=== PATIENT | male | born 1980 | race Two or more races ===

== ENCOUNTER 2021-07-05 01:33 | Inpatient (IN) ==
[2021-07-05] MEDS ORDERED: METHOCARBAMOL 500 MG TABLET PO STA (03:56)
[2021-07-05] MEDS ORDERED: KETOROLAC 60 MG/2 ML VIAL IM STA (03:56)
[2021-07-05 04:03] LABS: Basophils # 0.4 10*3/uL (0.0-0.2); Basophils % 0.4 % (0.0-0.8); Eosinophils # 0.2 10*3/uL (0.0-0.87); Eosinophils % 0.2 % (0.00-10.9); Hematocrit 36.6 VOL% (42.0-52.0); Hemoglobin 12.1 GM/DL (14.0-18.0); Immature Granulocytes % 1.5 %; Immature Granulocytes Absolute 1.26 #; Lymphocytes # 21.9 10*3/uL (1.4-4.0); Lymphocytes % 26.2 % (21.2-54.2); Mean Corpuscular HGB Conc 33.1 GM/DL (32-36); Mean Platelet Volume 9.8 FL (9.6-12.0); Monocytes % 53.2 % (1.7-12.7); NRBC # 0.26 10*3/uL; Neutrophils % 18.5 % (38.7-73.9); Platelet Count 150 T/CUMM (130-400); Red Blood Count 3.98 MC/CUMM (3.8-5.5); Red Cell Distribution Width 16.6 % (9.3-17.3)
[2021-07-05 04:13] LABS: White Blood Count 83.7 T/CUMM (4-12)
[2021-07-05 04:24] LABS: Alanine Aminotransferase 39 U/L (16-61); Albumin 3.7 G/DL (3.4-5.0); Alkaline Phosphatase 101 U/L (45-117); Aspartate Amino Transferase 20 U/L (0-37); Bilirubin,Total < 0.39 MG/DL (0.20-1.00); Blood Urea Nitrogen 18 MG/DL (7-18); Carbon Dioxide 26 MMOL/L (21-32); Estimated Glom Filtration Rate 112 ML/MIN; Glucose 97 MG/DL (74-106); Potassium 3.6 MMOL/L (3.5-5.1); Sodium 136 MMOL/L (136-145); Total Protein 8.4 G/DL (6.4-8.2)
[2021-07-05] MEDS ORDERED: ZALEPLON 5 MG CAPSULE PO PRN (05:04)
[2021-07-05] MEDS ORDERED: ONDANSETRON 4 MG/2 ML VIAL IV PRN (05:04)
[2021-07-05] MEDS ORDERED: ENOXAPARIN 100 MG/ML SYRINGE SUBCUT STA (05:35)
[2021-07-05 07:39] LABS: Band Neutrophils 1 % (0-10); Lymphocytes 59 % (20-55); Segmented Neutrophils 6 % (50-85); Total Cells Counted 100
[2021-07-05 07:40] LABS: Atypical Lymphocytes Many; Hypochromasia 1+; Microcytosis 1+; Platelet Estimate Normal
[2021-07-05 10:53] LABS: Basophils # 0.2 10*3/uL (0.0-0.2); Basophils % 0.3 % (0.0-0.8); Eosinophils # 0.2 10*3/uL (0.0-0.87); Eosinophils % 0.2 % (0.00-10.9); Hematocrit 36.9 VOL% (42.0-52.0); Hemoglobin 12.1 GM/DL (14.0-18.0); Immature Granulocytes % 1.4 %; Immature Granulocytes Absolute 1.03 #; Lymphocytes # 21.7 10*3/uL (1.4-4.0); Lymphocytes % 28.5 % (21.2-54.2); Mean Corpuscular HGB Conc 32.8 GM/DL (32-36); Mean Corpuscular Volume 92.3 FL (87-102); Mean Platelet Volume 9.7 FL (9.6-12.0); Monocytes % 52.5 % (1.7-12.7); NRBC # 0.22 10*3/uL; Neutrophils % 17.1 % (38.7-73.9); Platelet Count 149 T/CUMM (130-400); Red Cell Distribution Width 16.7 % (9.3-17.3)
[2021-07-05 11:01] LABS: White Blood Count 76.2 T/CUMM (4-12)
[2021-07-05 11:27] LABS: Eosinophils 1 % (0-10); Lymphocytes 86 % (20-55); Nucleated Red Blood Cells 2 (0-5); Segmented Neutrophils 2 % (50-85); Total Cells Counted 100
[2021-07-05 11:28] LABS: Atypical Lymphocytes Many; Hypochromasia 1+; Microcytosis 1+; Platelet Estimate Adequate
[2021-07-05] MEDS: ENOXAPARIN 100 MG/ML SYRINGE SUBCUT SCH (20:47)
[2021-07-05] MEDS: MONTELUKAST 10 MG TABLET PO SCH (22:23)
[2021-07-05] MEDS: KETOROLAC 15 MG/1 ML VIAL IV SCH (22:23)
[2021-07-06] MEDS: KETOROLAC 15 MG/1 ML VIAL IV SCH (05:39)
[2021-07-06 07:55] LABS: Basophils # 0.2 10*3/uL (0.0-0.2); Basophils % 0.2 % (0.0-0.8); Eosinophils # 0.1 10*3/uL (0.0-0.87); Eosinophils % 0.2 % (0.00-10.9); Hematocrit 35.4 VOL% (42.0-52.0); Hemoglobin 11.7 GM/DL (14.0-18.0); Immature Granulocytes % 0.7 %; Immature Granulocytes Absolute 0.44 #; Mean Corpuscular HGB Conc 33.1 GM/DL (32-36); Mean Corpuscular Volume 90.3 FL (87-102); Mean Platelet Volume 9.3 FL (9.6-12.0); Monocytes % 57.4 % (1.7-12.7); NRBC # 0.09 10*3/uL; Neutrophils % 14.5 % (38.7-73.9); Platelet Count 133 T/CUMM (130-400); Red Blood Count 3.92 MC/CUMM (3.8-5.5); Red Cell Distribution Width 16.7 % (9.3-17.3)
[2021-07-06 07:57] LABS: White Blood Count 66.4 T/CUMM (4-12)
[2021-07-06 08:13] LABS: Alanine Aminotransferase 39 U/L (16-61); Albumin 3.3 G/DL (3.4-5.0); Alkaline Phosphatase 100 U/L (45-117); Aspartate Amino Transferase 16 U/L (0-37); Bilirubin,Direct < 0.100 MG/DL (0.0-0.20); Bilirubin,Indirect 0.4 MG/DL (0.0-1.0); Blood Urea Nitrogen 18 MG/DL (7-18); Calcium 8.6 MG/DL (8.5-10.1); Carbon Dioxide 25 MMOL/L (21-32); Estimated Glom Filtration Rate 111 ML/MIN; Glucose 99 MG/DL (74-106); Osmolality,Calculated 276.7 MOS/KG (273-304); Sodium 138 MMOL/L (136-145)
[2021-07-06 08:35] LABS: Atypical Lymphocytes Many; Lymphocytes 75 % (20-55); Metamyelocytes 1 %; Myelocytes 2 %; Nucleated Red Blood Cells 1 (0-5); Segmented Neutrophils 11 % (50-85); Total Cells Counted 100
[2021-07-06 08:36] LABS: Hypochromasia 1+; Microcytosis 1+; Platelet Estimate Adequate
[2021-07-06] MEDS: ENOXAPARIN 100 MG/ML SYRINGE SUBCUT SCH ×2 (09:44→21:55)
[2021-07-06] MEDS: ACETAMINOPHEN 325 MG TABLET PO PRN (14:34)
[2021-07-06] MEDS: KETOROLAC 30 MG/1 ML VIAL IV PRN (21:53)
[2021-07-06] MEDS: MONTELUKAST 10 MG TABLET PO SCH (21:53)
[2021-07-07 05:16] LABS: Basophils # 0.1 10*3/uL (0.0-0.2); Basophils % 0.2 % (0.0-0.8); Eosinophils # 0.1 10*3/uL (0.0-0.87); Eosinophils % 0.1 % (0.00-10.9); Hematocrit 33.8 VOL% (42.0-52.0); Immature Granulocytes % 0.7 %; Immature Granulocytes Absolute 0.47 #; Lymphocytes # 18.2 10*3/uL (1.4-4.0); Lymphocytes % 28.6 % (21.2-54.2); Mean Corpuscular HGB Conc 32.5 GM/DL (32-36); Mean Corpuscular Volume 92.6 FL (87-102); Mean Platelet Volume 9.5 FL (9.6-12.0); Monocytes % 51.9 % (1.7-12.7); NRBC # 0.07 10*3/uL; Neutrophils % 18.5 % (38.7-73.9); Platelet Count 115 T/CUMM (130-400); Red Blood Count 3.65 MC/CUMM (3.8-5.5); Red Cell Distribution Width 16.6 % (9.3-17.3)
[2021-07-07 05:36] LABS: White Blood Count 63.7 T/CUMM (4-12)
[2021-07-07 05:58] LABS: Lymphocytes 88 % (20-55); Myelocytes 1 %; Segmented Neutrophils 3 % (50-85); Total Cells Counted 100
[2021-07-07 05:59] LABS: Atypical Lymphocytes Many; Hypochromasia 1+; Microcytosis 1+; Smudge Cells Few
[2021-07-07 10:34] LABS: INR 1.1; PT Patient Result 12.6 SECS (10.5-12.0); Partial Thromboplastin Time 27.4 SECS (23.9-33.8)
[2021-07-07] MEDS: cefTRIAXone 1,000 MG in SODIUM CHLORIDE 0.9% 100 ML IV SCH (10:34)
[2021-07-07] MEDS: ENOXAPARIN 100 MG/ML SYRINGE SUBCUT SCH ×2 (10:39→21:07)
[2021-07-07] MEDS: ACETAMINOPHEN 325 MG TABLET PO PRN (13:25)
[2021-07-07] MEDS: allopurinoL 300 MG TABLET PO SCH (16:45)
[2021-07-07] MEDS: MONTELUKAST 10 MG TABLET PO SCH (21:04)
[2021-07-07] MEDS: KETOROLAC 30 MG/1 ML VIAL IV PRN (21:33)
[2021-07-08 05:16] LABS: Basophils # 0.2 10*3/uL (0.0-0.2); Basophils % 0.3 % (0.0-0.8); Eosinophils # 0.1 10*3/uL (0.0-0.87); Eosinophils % 0.1 % (0.00-10.9); Hematocrit 33.6 VOL% (42.0-52.0); Hemoglobin 10.9 GM/DL (14.0-18.0); Immature Granulocytes % 0.9 %; Immature Granulocytes Absolute 0.63 #; Lymphocytes # 18.7 10*3/uL (1.4-4.0); Lymphocytes % 27.3 % (21.2-54.2); Mean Corpuscular HGB Conc 32.4 GM/DL (32-36); Mean Corpuscular Volume 92.6 FL (87-102); Monocytes % 48.5 % (1.7-12.7); NRBC # 0.09 10*3/uL; Neutrophils % 22.9 % (38.7-73.9); Platelet Count 118 T/CUMM (130-400); Red Blood Count 3.63 MC/CUMM (3.8-5.5); Red Cell Distribution Width 16.5 % (9.3-17.3)
[2021-07-08 05:38] LABS: White Blood Count 68.5 T/CUMM (4-12)
[2021-07-08 05:47] LABS: Calcium 8.5 MG/DL (8.5-10.1); Osmolality,Calculated 274.8 MOS/KG (273-304); Potassium 3.8 MMOL/L (3.5-5.1); Uric Acid 8.4 MG/DL (3.5-7.2)
[2021-07-08 05:51] LABS: Atypical Lymphocytes Many; Lymphocytes 90 % (20-55); Platelet Estimate Decreased; Segmented Neutrophils 4 % (50-85); Total Cells Counted 100
[2021-07-08 05:52] LABS: Hypochromasia 1+; Microcytosis 1+
[2021-07-08] MEDS: cefTRIAXone 1,000 MG in SODIUM CHLORIDE 0.9% 100 ML IV SCH (09:24)
[2021-07-08] MEDS: allopurinoL 300 MG TABLET PO SCH (09:24)
[2021-07-08] MEDS: ENOXAPARIN 100 MG/ML SYRINGE SUBCUT SCH (09:24)
[2021-07-08] MEDS: KETOROLAC 30 MG/1 ML VIAL IV PRN (11:10)
[2021-07-08 16:13] VITALS: BP 142/75
== END 2021-07-08 18:10 | disposition hospice, home (50) | DRG 834 ==
LOC: SUATTDRO → N.ED 01:33 → N.EDINP 01:33 → N.5E 10:12 → SUATTDRO 07-07 13:31
PROVIDERS: ADMIT Internal Medicine; ATTEND Internal Medicine